=== PATIENT | male | born 1950 | race American Indian/Alaskan Native ===

== ENCOUNTER 2020-06-19 00:37 | Emergency (ER) | payer OTHER ==
[2020-06-19] MEDS ORDERED: SODIUM CHLORIDE 0.9% 1000 ML 1,000 ML IV ONE (00:53)
--- NOTE | 2020-06-19 01:04 | Emergency Department Report ---
Blank Doc - Documentation Documentation: Chest pain fever multiple syncopal episodes with 2 occurring while in the [facility] Examination currently alert no acute distress This initial assessment/diagnostic orders/clinical plan/treatment(s) is/are subject to change based on patients health status, clinical progression and re- assessment by fellow clinical providers in the ED. Further treatment and workup at subsequent clinical providers discretion. Patient/guardian urged not to elope from the ED as their condition may be serious if not clinically assessed and managed. Initial orders include: Recommend cardiac evaluation and infectious eval due to fever
[2020-06-19 01:37] LABS: Basophils % (Auto) 0.8 % (0.0-1.8); Eosinophils % (Auto) 0.2 % (0.0-4.3); Hematocrit 41.2 % (35.5-45.6); Hemoglobin 13.7 gm/dl (11.8-15.2); Lymphocytes # (Auto) 0.9 K/mm3 (1.2-5.4); Lymphocytes % (Auto) 23.1 % (13.4-35.0); Mean Corpuscular HGB Conc 33 % (32-34); Mean Corpuscular Volume 90 fl (84-94); Monocytes # (Auto) 0.4 K/mm3 (0.0-0.8); Monocytes % (Auto) 9.6 % (0.0-7.3); Platelet Count 175 K/mm3 (140-440); Red Blood Count 4.56 M/mm3 (3.65-5.03); Red Cell Distribution Width 12.9 % (13.2-15.2)
[2020-06-19 01:38] LABS: Albumin 4.3 g/dL (3.9-5); Calcium 9.3 mg/dL (8.4-10.2)
[2020-06-19] MEDS ORDERED: ACETAMINOPHEN 325 MG TAB PO ONE (01:39)
[2020-06-19] MEDS ORDERED: ONDANSETRON 4 MG/2 ML INJ IV ONE (01:39)
--- NOTE | 2020-06-19 01:42 | XRay Report ---
CHEST 1 VIEW 06/19/2020 1:07 AM INDICATION / CLINICAL INFORMATION: Dyspnea. Productive cough, fever COMPARISON: None available. FINDINGS: SUPPORT DEVICES: None. HEART / MEDIASTINUM: No significant abnormality. LUNGS / PLEURA: No significant pulmonary or pleural abnormality. No pneumothorax. ADDITIONAL FINDINGS: No significant additional findings. IMPRESSION: 1. No acute findings. Signer Name: Jemal Gill MD Signed: 06/19/2020 1:37 AM Workstation Name: [id number]
--- NOTE | 2020-06-19 01:45 | Emergency Department Report ---
HPI - General Chief Complaint: Dyspnea/Respdistress Time Seen by Provider: 06/19/20 01:20 - HPI HPI: This is a 70-year-old -[place] male who presents to the emergency department with a complaint of a 2-week history of a mixed dry and productive co ugh, a 1 week history of intermittent low-grade fever, a 1.5-week history of some nausea with vomiting in which the patient has about 1-2 episodes of vomiting per day. The patient also says that he has been having some intermittent shortness of breath. He denies any chest pain, lower extremity swe lling, abdominal pain, constipation, diarrhea. The patient has taken multiple [id number] medications for his symptoms without much relief. When the patient got to triage he had a witnessed syncopal episode for about 30 seconds. Patient has a past medical history of diabetes and hypertension. He follows with the [facility] for primary care needs. No recent travel or sick contacts at home. No known exposure to anyone with COVID-19. He denies any tobacco or illicit drug use. ED Past Medical Hx - Past Medical History Hx Hypertension: Yes Hx Diabetes: Yes - Surgical History Past Surgical History?: Yes Additional Surgical History: Hernia - Social History Smoking Status: Never Smoker Substance Use Type: Alcohol - Medications Home Medications: Home Medications Medication Instructions Recorded Confirmed Last Taken Type Benzonatate [Tessalon Perles] 100 mg PO Q8HR PRN #20 capsule 06/19/20 Unknown Rx Ondansetron [Zofran Odt] 4 mg PO Q8HR PRN #12 tab.rapdis 06/19/20 Unknown Rx ED Review of Systems ROS: Stated complaint: SOB,COUGH,BODYACHE Other details as noted in HPI Comment: All other systems reviewed and negative Constitutional: chills, fever Eyes: denies: eye pain, vision change ENT: denies: ear pain, throat pain Respiratory: cough, shortness of breath (Intermittent) Cardiovascular: syncope. denies: chest pain Gastrointestinal: nausea, vomiting. denies: abdominal pain Genitourinary: denies: dysuria, discharge Musculoskeletal: myalgia. denies: joint swelling Skin: denies: rash, lesions Neurological: denies: headache, weakness Physical Exam - Physical Exam Vital Signs: Vital Signs 06/19/20 00:47 Temperature 100.5 F H Pulse Rate 72 Respiratory 16 Rate Blood Pressure 156/76 O2 Sat by Pulse 93 Oximetry Physical Exam: GENERAL: The patient is well-developed well-nourished. HENT: Normocephalic. Atraumatic. Patient has moist mucous membranes. EYES: Extraocular motions are intact. NECK: Supple. Trachea is midline. CHEST/LUNGS: Clear to auscultation. There is no respiratory distress noted. HEART/CARDIOVASCULAR: Regular. There is no tachycardia. There is no murmur. ABDOMEN: Abdomen is soft, nontender. Patient has normal bowel sounds. SKIN: Skin is warm and dry. NEURO: The patient is awake, alert, and oriented. The patient is cooperative. The patient has no focal neurologic deficits. Normal speech. MUSCULOSKELETAL: There is no tenderness or deformity. There is no limitation range of motion. ED Course Vital Signs 06/19/20 00:47 Temperature 100.5 F H Pulse Rate 72 Respiratory 16 Rate Blood Pressure 156/76 O2 Sat by Pulse 93 Oximetry ED Medical Decision Making - Lab Data Result diagrams: 06/19/20 00:59 06/19/20 00:59 Lab Results 06/19/20 06/19/20 06/19/20 Range/Units 00:59 00:59 00:59 WBC 4.0 L (4.5-11.0) K/mm3 RBC 4.56 (3.65-5.03) M/mm3 Hgb 13.7 (11.8-15.2) gm/dl Hct 41.2 (35.5-45.6) % MCV 90 (84-94) fl MCH 30 (28-32) pg MCHC 33 (32-34) % RDW 12.9 L (13.2-15.2) % Plt Count 175 (140-440) K/mm3 Lymph % (Auto) 23.1 (13.4-35.0) % Whiteside % (Auto) 9.6 H (0.0-7.3) % Eos % (Auto) 0.2 (0.0-4.3) % Baso % (Auto) 0.8 (0.0-1.8) % Lymph # (Auto) 0.9 L (1.2-5.4) K/mm3 Whiteside # (Auto) 0.4 (0.0-0.8) K/mm3 Eos # (Auto) 0.0 (0.0-0.4) K/mm3 Baso # (Auto) 0.0 (0.0-0.1) K/mm3 Seg Neutrophils % 66.3 (40.0-70.0) % Seg Neutrophils # 2.7 (1.8-7.7) K/mm3 PT (12.2-14.9) Sec. INR (0.87-1.13) APTT (24.2-36.6) Sec. Sodium 135 L (137-145) mmol/L Potassium 4.0 (3.6-5.0) mmol/L Chloride 101.0 (98-107) mmol/L Carbon Dioxide 20 L (22-30) mmol/L Anion Gap 18 mmol/L BUN 17 (9-20) mg/dL Creatinine 1.5 H (0.8-1.3) mg/dL Estimated GFR 56 ml/min BUN/Creatinine Ratio 11 % Glucose 191 H (75-100) mg/dL Calcium 9.3 (8.4-10.2) mg/dL Total Bilirubin 0.30 (0.1-1.2) mg/dL AST 29 (5-40) units/L ALT 18 (7-56) units/L Alkaline Phosphatase 89 (35-129) units/L Troponin T < 0.010 (0.00-0.029) ng/mL NT-Pro-B Natriuret Pep (0-900) pg/mL Total Protein 7.6 (6.3-8.2) g/dL Albumin 4.3 (3.9-5) g/dL Albumin/Globulin Ratio 1.3 % 06/19/20 06/19/20 06/19/20 Range/Units 01:26 01:26 03:06 WBC (4.5-11.0) K/mm3 RBC (3.65-5.03) M/mm3 Hgb (11.8-15.2) gm/dl Hct (35.5-45.6) % MCV (84-94) fl MCH (28-32) pg MCHC (32-34) % RDW (13.2-15.2) % Plt Count (140-440) K/mm3 Lymph % (Auto) (13.4-35.0) % Whiteside % (Auto) (0.0-7.3) % Eos % (Auto) (0.0-4.3) % Baso % (Auto) (0.0-1.8) % Lymph # (Auto) (1.2-5.4) K/mm3 Whiteside # (Auto) (0.0-0.8) K/mm3 Eos # (Auto) (0.0-0.4) K/mm3 Baso # (Auto) (0.0-0.1) K/mm3 Seg Neutrophils % (40.0-70.0) % Seg Neutrophils # (1.8-7.7) K/mm3 PT 13.0 (12.2-14.9) Sec. INR 0.99 (0.87-1.13) APTT 30.2 (24.2-36.6) Sec. Sodium (137-145) mmol/L Potassium (3.6-5.0) mmol/L Chloride (98-107) mmol/L Carbon Dioxide (22-30) mmol/L Anion Gap mmol/L BUN (9-20) mg/dL Creatinine (0.8-1.3) mg/dL Estimated GFR ml/min BUN/Creatinine Ratio % Glucose (75-100) mg/dL Calcium (8.4-10.2) mg/dL Total Bilirubin (0.1-1.2) mg/dL AST (5-40) units/L ALT (7-56) units/L Alkaline Phosphatase (35-129) units/L Troponin T < 0.010 (0.00-0.029) ng/mL NT-Pro-B Natriuret Pep 27.92 (0-900) pg/mL Total Protein (6.3-8.2) g/dL Albumin (3.9-5) g/dL Albumin/Globulin Ratio % - EKG Data -: EKG Interpreted by Il EKG shows normal: sinus rhythm, axis (Left axis deviation), intervals, QRS complexes, ST-T waves Rate: normal - EKG Data When compared to previous EKG there are: previous EKG unavailable Interpretation: other (Sinus rhythm, normal intervals, left axis deviation. No ST elevation myocardial infarction.) - Radiology Data Radiology results: image reviewed interpreted by me: Chest x-ray does not show any acute process. There are no pleural effusions, obvious pneumonia and there is no pneumothorax. No significant cardiomegaly. - Medical Decision Making This patient presents to the emergency department with a complaint of a mixed dry and productive cough, some nausea and vomiting, fever and chills, body aches. Chest x-ray did not show any pneumonia, pleural effusions, pneumothorax, focal consolidation, or any other acute process. EKG did not have any morphology consistent with ST elevation myocardial infarction or any significant dysrhythmia. The patient's labs have been mostly unremarkable including CBC, metabolic panel, proBNP, and negative troponins x2. The patient did not express any risk factors for thromboembolic disease. He does not have any lower ex tremity swelling. Vital signs have been mostly unremarkable except for a a mild fever, but there has been no tachycardia, tachypnea or hypoxia. The patient was given a dose of antiemetics and some IV fluid resuscitation. He was reevaluated multiple times over multiple hours and says he is feeling greatly improved. He was able to pass an oral challenge. For all these reasons the patient appears safe for discharge home at this time. Given the upper respiratory type symptoms, and this current pandemic, COVID-19 is within the differential. Unfortunately I am unable to test him for COVID-19 at this time to the emergency department. We discussed isolation/quarantine and seeking outpatient COVID-19 testing. Critical Care Time: No Critical care attestation.: If time is entered above; I have spent that time in minutes in the direct care o f this critically ill patient, excluding procedure time. ED Disposition Clinical Impression: Suspected 2019 novel coronavirus infection Nausea & vomiting Qualifiers: Vomiting type: unspecified Vomiting Intractability: non-intractable Qualified Code(s): R11.2 - Nausea with vomiting, unspecified Upper respiratory infection Qualifiers: URI type: unspecified URI Qualified Code(s): J06.9 - Acute upper respiratory infection, unspecified Syncope Qualifiers: Syncope type: unspecified Qualified Code(s): R55 - Syncope and collapse Disposition: DC-01 TO HOME OR SELFCARE Is pt being admited?: No Condition: Stable Instructions: COVID-19, Nausea and Vomiting, Adult, Viral Respiratory Infection, Syncope, Syncope (ED) Additional Instructions: Please follow-up with your primary care physician in the next few days. Given your upper respiratory infection symptoms and this current pandemic, COVID-19 must be considered. Unfortunately I am unable to test you for COVID-19 through the emergency department. Please quarantine/isolate from anybody who is immunocompromised, elderly, or chronically ill/debilitated. I recommend that you seek outpatient COVID-19 testing. This can be done at some primary care offices, some urgent cares, and there should be a listing of testing facilities through the [facility]. Return to the emergency department with any worsening of your symptoms, new or concerning symptoms not addressed during this current emergency department visit, or with any acute distress. Prescriptions: Benzonatate [Tessalon Perles] 100 mg PO Q8HR PRN #20 capsule PRN Reason: Cough Ondansetron [Zofran Odt] 4 mg PO Q8HR PRN #12 tab.rapdis PRN Reason: Nausea Referrals: PRIMARY CAREMD [Primary Care Provider] - 2-3 Days MONICA WRIGHT MD [Staff Physician] - 2-3 Days [facility]Outside] - 2-3 Days Time of Disposition: 04:52
[2020-06-19 02:03] LABS: INR 0.99 (0.87-1.13)
[2020-06-19 02:04] LABS: Partial Thromboplastin Time 30.2 Sec. (24.2-36.6)
[2020-06-19 05:20] VITALS: BP 145/67
== END 2020-06-19 05:19 | disposition home or self-care (01) ==
LOC: ED 00:37
DX: J06.9 Acute upper respiratory infection, unspecified (principal); R55 Syncope and collapse; I10 Essential (primary) hypertension; E11.9 Type 2 diabetes mellitus without complications; Z20.828 Contact with and (suspected) exposure to other viral communicable diseases; Z79.899 Other long term (current) drug therapy
CPT/HCPCS: 36415; 71045; 80053; 83880; 84484; 85025; 85610; 85730; 87040; 93005; 96361; 96374; 99284; J2405; J7030